=== PATIENT | male | born 1960 | race Caucasian/White ===

== ENCOUNTER 2019-09-16 10:54 | Emergency (ER) | payer OTHER ==
[~2019-09-16] VITALS: Ht 167.6 cm; Wt 70.3 kg
[~2019-09-16 10:54] MED LIST: ALLEGRA-D 24 H1 EACH PO; AMBIEN 10 MG TA10 MG PO; DEXILANT60 MG PO; PAXIL 20 MG TAB20 M1 PO
[2019-09-16] MEDS ORDERED: DRIZALMA SPRINK20 MG PO (11:08)
[2019-09-16 11:15] LABS: URINE BILIRUBIN NEGATIVE (Negative); URINE BLOOD NEGATIVE (Negative); URINE CLARITY CLEAR; URINE COLOR YELLOW; URINE GLUCOSE-RANDOM NEGATIVE (Negative); URINE KETONES NEGATIVE (Negative); URINE LEUKOCYTES-REFLEX NEGATIVE (Negative); URINE NITRITE-REFLEX NEGATIVE (Negative); URINE PROTEIN NEGATIVE (Negative); URINE SPECIFIC GRAVITY 1.025 (1.005-1.030); URINE UROBILINOGEN 0.2 E.U./dl (0.2-1.0)
[2019-09-16] MEDS ORDERED: ROBAXIN 750 MG750 MG PO (11:48)
[2019-09-16] MEDS ORDERED: IBUPROFEN 800800 MG PO (11:54)
[2019-09-16 12:20] VITALS: BP 151/98
== END 2019-09-16 12:23 | disposition home or self-care (01) ==
LOC: M.ERS 10:54
PROVIDERS: Nurse Practitioner Family
DX: M54.5 Low back pain (principal); E78.00 Pure hypercholesterolemia, unspecified; Z88.6 Allergy status to analgesic agent; Z88.0 Allergy status to penicillin

== ENCOUNTER → 2019-11-16 | Outpatient (CLI) | payer BC ==
[~2019-11-16] MED LIST changes: +CRESTOR20 MG PO; +CUTIVATE30 GM TOP; +CYMBALTA30 MG PO; +DEPO-TESTO200 MG/1 M IM; +DRIZALMA SPRINK20 MG PO; +IBUPROFEN 800800 MG PO; +MECLIZINE HCL25 MG PO; +PERCOCET 7.5-31 EAC1 PO; +ROBAXIN 750 MG750 MG PO
== END ==
LOC: M.PC 09:48
DX: M48.02 Spinal stenosis, cervical region (principal); M43.12 Spondylolisthesis, cervical region; M50.322 Other cervical disc degeneration at C5-C6 level; M25.78 Osteophyte, vertebrae

== ENCOUNTER → 2020-05-14 | Outpatient (CLI) | payer BC ==
[~2020-05-14] MED LIST changes: +MOBIC7.5 MG PO
== END ==
LOC: M.PC 08:02
PROVIDERS: ATTEND Physical Medicine & Rehabilitation
DX: M47.22 Other spondylosis with radiculopathy, cervical region (principal); M79.601 Pain in right arm; M79.602 Pain in left arm; Z88.0 Allergy status to penicillin; Z88.8 Allergy status to other drugs, medicaments and biological substances